=== PATIENT | male | born 1985 | race African-American/Black ===

== ENCOUNTER 2022-04-24 16:51 | Emergency (ER) | payer OTHER ==
[~2022-04-24] VITALS: Ht 165.1 cm; Wt 60.0 kg
[2022-04-24 17:00] VITALS: BP 160/120
== END 2022-04-24 22:08 | disposition left against medical advice (07) ==
LOC: ER 16:51
DX: Z53.21 Procedure and treatment not carried out due to patient leaving prior to being seen by health care provider (principal); R30.0 Dysuria
CPT/HCPCS: 99281

== ENCOUNTER 2022-12-08 13:39 | Emergency (ER) | payer OTHER ==
[~2022-12-08] VITALS: Ht 180.3 cm; Wt 81.0 kg
[2022-12-08 13:47] VITALS: BP 160/115; O2SAT 96
[2022-12-08] MEDS ORDERED: PERM60CR4 TP (15:44)
[2022-12-08 16:13] VITALS: PULSE 116; RESP 18; TEMP 99
== END 2022-12-08 16:14 | disposition home or self-care (01) ==
LOC: ER 14:28
DX: B86 Scabies (principal)
CPT/HCPCS: 99281; 99282